=== PATIENT | male | born 1945 | race Caucasian/White ===

== ENCOUNTER 2023-11-14 07:41 | Outpatient (CLI) | payer MEDICARE, OTHER ==
--- NOTE | 2023-11-15 17:04 | Ultrasound Report ---
PROCEDURE: Duplex Ext Veins Right INDICATIONS: EDEMA TECHNIQUE: Real-time imaging, as well as color and pulse Doppler interrogation, were performed of the lower extr emity deep veins from the inguinal ligament to the popliteal fossa. Attempted visualization of the ca lf veins was performed. COMPARISON: None. FINDINGS: The deep veins are normally compressible, and free of intraluminal thrombus. Color and pu lse Doppler demonstrate normal phasic intraluminal flow. There is normal augmentation response to di stal compression maneuver. A popliteal fossa cyst is present which measures 2.9 x 0.7 x 2.5 cm. Within the medial aspect of the proximal right calf there is a complex intramuscular 7.9 x 0.9 x 2.9 cm fluid collection. IMPRESSION: 1. No deep venous thrombosis of the visualized lower extremity. 2. Popliteal fossa cyst. 3. Sonographic findings most consistent with a hematoma along the medial left aspect of the calf. Reviewed by: Aide Ken MD on 11/15/2023 5:03 PM PDT Approved by: Aide Ken MD on 11/15/2023 5:03 PM PDT Station ID: [id number]
== END 2023-11-14 07:42 | disposition home or self-care (01) ==
LOC: DI 07:41
PROVIDERS: ATTEND Student in an Organized Health Care Education/Training Program
DX: M71.21 Synovial cyst of popliteal space [Baker], right knee (principal); R60.0 Localized edema

== ENCOUNTER 2023-12-10 09:48 | Outpatient (CLI) | payer MEDICARE, OTHER ==
--- NOTE | 2023-12-10 15:51 | XRAY Report ---
PROCEDURE: Knee 3V RT INDICATIONS: RIGHT KNEE PAIN TECHNIQUE: 3 views of the knee(s) were acquired. COMPARISON: None. FINDINGS: Bones: No fractures or dislocations. No suspicious bony lesions. Soft tissues: No radiographically evident suprapatellar joint effusion. No suspicious soft tissue kelley cifications IMPRESSION: No acute osseous abnormality. Reviewed by: Sabas Wilkins MD on 12/10/2023 3:50 PM PDT Approved by: Sabas Wilkins MD on 12/10/2023 3:50 PM PDT Station ID: [id number]
--- NOTE | 2023-12-10 15:55 | XRAY Report ---
PROCEDURE: Ankle 3+V RT INDICATIONS: R ANKLE AND KNEE PAIN TECHNIQUE: 3 views of the ankle were acquired. COMPARISON: None. FINDINGS: Bones: No fracture or subluxation seen. The ankle mortise appears intact. 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 Plantar calcaneal spur present. Soft tissues: No tibiotalar joint effusion. Achilles tendon appears unremarkable. IMPRESSION: No acute osseous abnormality. Reviewed by: Sabas Wilkins MD on 12/10/2023 3:53 PM PDT Approved by: Sabas Wilkins MD on 12/10/2023 3:53 PM PDT Station ID: [id number]
== END 2023-12-10 09:49 | disposition home or self-care (01) ==
LOC: DI 09:48
PROVIDERS: ATTEND Internal Medicine
DX: M25.561 Pain in right knee (principal); M25.871 Other specified joint disorders, right ankle and foot